=== PATIENT | male | born 1990 | race Caucasian/White ===

== ENCOUNTER 2018-10-04 12:12 | Emergency (ER) | payer OTHER ==
[~2018-10-04] VITALS: Ht 170.2 cm; Wt 86.2 kg
[2018-10-04 12:16] VITALS: BP 143/76
== END 2018-10-04 12:54 | disposition home or self-care (01) ==
LOC: ER 12:14
DX: H61.23 Impacted cerumen, bilateral (principal)
CPT/HCPCS: 99282; A4606